=== PATIENT | female | born 1980 | race Caucasian/White ===

== ENCOUNTER 2017-08-27 23:09 | Emergency (ER) | payer BC ==
[~2017-08-27] VITALS: Ht 157.5 cm; Wt 82.9 kg
[2017-08-27 23:13] VITALS: BP 148/101; PULSE 80; TEMP 36.5; O2SAT 98; Ht 157.5 cm; Wt 82.9 kg
[2017-08-27] MEDS ORDERED: AMOX875T PO (23:30)
[2017-08-27] MEDS ORDERED: NORCO 5/325MG HOME PACK PO ONE (23:30)
[2017-08-27] MEDS ORDERED: OXYMETAZOLINE HCL 0.05% NA SPR 15 ML BTL ONE (23:30)
[2017-08-27] MEDS ORDERED: AMOXICIL/CLAVU 875MG HOME PACK PO ONE (23:30)
--- NOTE | 2017-08-28 05:18 | EMERGENCY ROOM VISIT NOTE ---
ED Visit Note First contact with patient: 23:18 CHIEF COMPLAINT: Earache HISTORY OF PRESENT ILLNESS: This 37-year-old female presents to the emergency department and states they have had an earache in the right ear that began worsening significantly over the past 2-3 hours. The patient has had mild URI symptoms lately. There is no cough and no hoarseness. They rate the pain as sharp and 9/10. The pain is in the right ear. They have had nothing for the pain. REVIEW OF SYSTEMS: A 6 system review of systems was completed with positives and pertinent negatives listed in the HPI. ALLERGIES: No known allergies MEDICATIONS: No chronic medication PMH: Otherwise healthy. Immunizations are up to date. SH: Lives locally with family PHYSICAL EXAM: Vital Signs: Reviewed Nurse's notes GENERAL: White female, who appears quite uncomfortable. She is holding her right ear with her right hand.. SKIN: Normal. HEART: Regular rate and rhythm without murmurs gallops or rubs. LUNGS: Clear to auscultation and breath sounds equal, no wheezes, rales, or rhonchi. MOUTH: The pharynx is not inflamed and the tonsils are not enlarged. The airway is patent. EARS: The right tympanic membrane is erythematous, inflamed and bulging. The right external auditory canal is clear with no tragus tenderness. The left tympanic membrane is pearly gomez without erythema or effusion. The left external auditory canal is clear. LYMPH: There is no lymphadenopathy. ED COURSE: I examined the patient. She appears quite uncomfortable on examination. On examination she has a right otitis media. He does not have other significant findings. The patient will be given a course of Augmentin. She was provided Afrin here in the department to help with her symptoms as well. She will be given a home pack of Vicodin for pain control and was otherwise invited back to the ER with any new, worsening, or concerning symptoms. Current/Historical Medications Scheduled Amoxicillin & Pot Clavulanate (Augmentin 875-125 mg), 1 TAB PO BID Allergies Coded Allergies: No Known Allergies (Unverified , 08/27/17) Vital Signs Date Time Temp Pulse Resp B/P (MAP) Pulse Ox O2 Delivery O2 Flow Rate FiO2 08/27/17 23:13 36.5 80 18 148/101 98 Room Air Medications Administered Medications (Trade) Dose Ordered Sig/Angel Route Start Time Stop Time Status Last Admin Dose Admin Amoxicillin/ Clavulanate Potassium (Augmentin 875MG Home Pack) 1 homepack UD ONCE PO 08/27/17 23:30 08/27/17 23:31 DC 08/27/17 23:40 1 HOMEPACK Acetaminophen/ Hydrocodone Bitart ([place] 5/325mg Home Pack) 1 homepack UD ONCE PO 08/27/17 23:30 08/27/17 23:31 DC 08/27/17 23:40 1 HOMEPACK Oxymetazoline HCl (Afrin 0.05% Nasal [place]) 1 sprays NOW ONCE NA 08/27/17 23:30 08/27/17 23:31 DC 08/27/17 23:41 1 SPRAYS Departure Information Impression Primary Impression: Right ear pain Dispostion Home / Self-Care Condition GOOD Prescriptions Amoxicillin & Pot Clavulanate (Augmentin 875-125 mg) 1 Tab Tab 1 TAB PO BID for 9 Days, #18 TAB Prov: Jose Worley PA-C 08/27/17 Referrals No Doctor, Assigned Rossi Farias, C.R.N.P. (PCP) Forms HOME CARE DOCUMENTATION FORM, IMPORTANT VISIT INFORMATION Patient Instructions My [facility] Additional Instructions You were seen and evaluated today on an emergency basis only. This is not a substitute for, or an effort to provide, complete comprehensive medical care. It is not possible to recognize and treat all injuries or illnesses in a single emergency department visit. For this reason it is recommended that you followup with your primary care physician with any ongoing or persistent symptoms. Amoxicillin Clavulanate (Augmentin) 875mg: Take one pill twice daily for 10 days for your infection. All antibiotics can cause diarrhea. If this occurs and you feel worse or it does not resolve in 1-2 days follow up with your doctor or return to the Emergency Department as this could be signs of serious underlying problems. Any medication can cause an allergic reaction, stop the pills immediately and return to the ER for rash, hives, breathing difficulties, or swelling. For baseline pain relief you may alternate ibuprofen and acetaminophen every 4 hours for pain control. Take 600 mg ibuprofen (Advil) and then 4 hours later take 1000 mg acetaminophen (Tylenol). Do not take more than 3000 mg acetaminophen in a single day. [place] (hydrocodone/acetaminophen) 5/325 mg ONE pill every 6 hours as needed for worsening breakthrough pain. Do not drink or drive on [place]. This medication will likely make you tired. Do not take [place] and Tylenol at the same time as both contain acetaminophen. [place] may cause constipation. You may wish to take an [id number] stool softener like Colace if this occurs. Consider [id number] Afrin and Sudafed for additional relief of symptoms. You are welcome to return to the emergency department anytime with new, worsening, or concerning symptoms.
== END 2017-08-27 23:42 | disposition home or self-care (01) ==
LOC: C.EDB 23:11 → C.EDC 23:42
DX: H66.91 Otitis media, unspecified, right ear (principal)